=== PATIENT | male | born 1950 | race Caucasian/White ===

== ENCOUNTER 2021-10-31 06:41 | Day surgery (SDC) | payer MEDICARE, OTHER ==
[2021-10-25 11:45] LABS: CLARITY,URINE CLEAR (Clear); COLOR,URINE YELLOW (Yellow); GLUCOSE, URINE NEGATIVE (Neg); KETONES,URINE TRACE mg/dl (Neg); LEUKOCYTE ESTERASE ,URINE NEGATIVE (Neg); NITRITES, URINE NEGATIVE (Neg); OCCULT BLOOD,URINE TRACE-INTACT (Neg); PROTEIN,URINE NEGATIVE (Neg); UA COLLECTION TYPE CLN CATCH MIDSTREAM; UROBILINOGEN,URINE 0.2 E.U/dL (0.2-1.0)
[2021-10-25 11:48] LABS: BASOPHILS # (AUTO) 0.1 X10'3 (0-0.2); BASOPHILS % (AUTO) 0.9 % (0-1); EOSINOPHILS # (AUTO) 0.2 X10'3 (0-0.9); LYMPHOCYTES # (AUTO) 2.9 X10'3 (1.1-4.8); LYMPHOCYTES % (AUTO) 33.3 % (21-51); MEAN CORPUSCULAR HEMOGLOBIN 32.1 PG (27.0-31.0); MEAN CORPUSCULAR HGB CONC 34.1 g/dL (33.0-36.5); MEAN CORPUSCULAR VOLUME 94.3 FL (78-98); MEAN PLATELET VOLUME 7.3 FL (7.4-10.4); MONOCYTES # (AUTO) 0.7 X10'3 (0-0.9); MONOCYTES % (AUTO) 8.4 % (2-12); NEUTROPHILS # (AUTO) 4.9 X10'3 (1.8-7.7); NEUTROPHILS % (AUTO) 55.4 % (42-75); PRE OP HEMOGLOBIN 14.7 g/dL (14.0-17.9); PRE OP PLATELET COUNT 262 X10'3 (140-440); RED BLOOD COUNT 4.56 X10'6 (4.70-6.10); RED CELL DISTRIBUTION WIDTH 13.4 % (11.5-14.5)
[2021-10-25 11:52] LABS: HYALINE CASTS 0-3 /LPF (NEGATIVE); MUCUS STRANDS MANY /LPF (Neg)
[2021-10-25 11:53] LABS: WBC,URINE 0-4 /HPF (0-4)
[2021-10-25 11:54] LABS: BACTERIA,URINE FEW /HPF (Neg); RBC,URINE 0-2 /HPF (0-2)
[2021-10-25 11:56] LABS: SQUAMOUS EPITHELIAL CELL,UR MODERATE /LPF (FEW)
[2021-10-25 12:29] LABS: ALBUMIN 3.7 G/DL (3.4-5.0); ALBUMIN/GLOBULIN RATIO 0.9 (1.1-1.5); ALKALINE PHOSPHATASE 93 IU/L (46-116); BLOOD UREA NITROGEN 17 MG/DL (7-18); BUN/CREATININE RATIO 19.1 (5.4-32.0); CALCIUM 9.1 MG/DL (8.5-10.1); CHLORIDE 102 MMOL/L (99-107); CREATININE 0.89 MG/DL (0.60-1.10); PRE OP ALT 39 U/L (30-65); PRE OP ANION GAP 7 (8-16); PRE OP AST 23 U/L (10-37); PRE OP GLUCOSE 98 MG/DL (70-104); PRE OP SODIUM 138 MMOL/L (135-145); TOTAL CARBON DIOXIDE 28.6 MMOL/L (24-32); TOTAL PROTEIN 7.7 G/DL (6.4-8.2); eGFR 85 ML/MIN
[2021-10-25 12:39] LABS: PRE OP BILIRUB, TOTAL 1.5 MG/DL (0.0-1.0)
[~2021-10-31] VITALS: Ht 172.7 cm; Wt 92.9 kg
[2021-10-31] VITALS (25 sets, daily range): BP systolic 132–160; BP diastolic 68–87
[~2021-10-31 06:41] MED LIST: ALLO100T PO; ASPI-845 PO; ATOR40TA PO; DOCUMENT DATE & TIME OF BETA-BLOCKER PO ONE; EZET10TA6 PO; FERR240T15 PO; FLO0.4C PO; LOP12.5T PO; MAGN400C PO; OMEG-79 PO; cefazolin/dext.iso 2gm/50ml IV ONE; famotidine 20mg tablet PO ONE; ringers solution, lacted 1,000 ML IV SCH
[2021-10-31] MEDS ORDERED: AMLO2.5T5 PO (07:13)
[2021-10-31] MEDS ORDERED: BUPIVAcaine/PF 2.5 mg/ml (0.25%) 30ml vial ONE ×3 (08:29→12:45)
[2021-10-31] MEDS ORDERED: morphine 4 MG/ML inj SYRINge IV PRN (10:15)
[2021-10-31] MEDS ORDERED: ondansetron/PF 4mg/2ml inj IV PRN (10:15)
[2021-10-31] MEDS ORDERED: proCHLORperazine 10 MG/2 ml inj IV PRN (10:15)
[2021-10-31] MEDS ORDERED: meperidine/PF 25mg/ml syringe IV PRN ×3 (10:15)
[2021-10-31] MEDS ORDERED: ringers solution, lacted 1,000 ML IV SCH (10:15)
[2021-10-31] MEDS ORDERED: morphine 2 MG/ML inj. syringe IV PRN (10:15)
[2021-10-31] MEDS ORDERED: fentaNYL/PF 50MCG/1 ML 2ML syringe ONE (10:17)
[2021-10-31] MEDS ORDERED: midazolam 1 mg/ML 2ml injection ONE (10:17)
[2021-10-31] MEDS ORDERED: LIDOcaine 2% (20mg/ml) 5ml vial ONE (10:20)
[2021-10-31] MEDS ORDERED: propofol inj 20 ML IV ONE (10:20)
[2021-10-31] MEDS ORDERED: ondansetron/PF 4mg/2ml inj ONE (10:21)
[2021-10-31] MEDS ORDERED: dexamethasone sod phosphate 4mg/ml inj. ONE (10:21)
[2021-10-31] MEDS ORDERED: rocuronium 10mg/ml inj IV ONE (10:21)
[2021-10-31] MEDS ORDERED: neostigmine methylsulfate 1 MG/ML 10ml vial ONE (11:11)
[2021-10-31] MEDS ORDERED: sevoflurane 250ml liquid IH ONE (11:11)
[2021-10-31] MEDS ORDERED: glycopyrrolate 0.2mg/ml inj ONE (11:11)
[2021-10-31] MEDS ORDERED: bacitracin 15gm ointment TP ONE (11:52)
--- NOTE | 2021-10-31 12:53 | NUR ---
Received from OR via , accompanied by Anesthesiologist DR SAUL and report given by Anesthesiolgist. PT PRESENTS WITH 20G RIGHT HAND, ABD DRESSING DRY AND INTACT, VS. Addendum: 10/31/21 at 1322 by Zara Tam RN, RN Amended: Links added.
--- NOTE | 2021-10-31 16:28 | NUR ---
PT UP TO THE BATHROOM, UNABLE TO URINATE. BLADDER SCAN 117 URINE. PT GIVNE 1000 MLS WATER TO DRINK. PT REFUSING CERON CATHETER AT THIS TIME. Addendum: 10/31/21 at 1629 by Zara Tam RN, RN Amended: Links added.
[2021-10-31] MEDS ORDERED: LIDOcaine 2% 10ml TOPICAL JELLY (Urojet) MM ONE (18:50)
--- NOTE | 2021-10-31 19:00 | NUR ---
CERON CATHER PLACED 16 L[place]ISH WITH 450 MLS OF URINE OUTPUT. PT TO FOLLOW UP WITH DR INGRAM IN 48 HOURS TO HAVE CERON CATHETER REMOVED. PT IS AWARE AND WILL CALL DR INGRAM FOR AN APT IN THE MORNING. Addendum: 10/31/21 at 1937 by Zara Tam RN, RN Amended: Links added.
--- NOTE | 2021-10-31 19:23 | NUR ---
PATIENT DISCHARGED FROM PACU IN STABLE CONDITION AFTER WRITTEN AND VERBAL DISCHARGE INSTRUCTIONS GIVEN. PATIENT GAVE VERBAL UNDERSTANDING OF INSTRUCTIONS. PATIENT LEFT FACILITY VIA WHEELCHAIR WITH RN. PT ADVISED TO HAVE F/C REMOVED BY DR INGRAM IN 48 HOURS. PT TO HAVE F/C REMOVED IN 48 HOURS. Addendum: 10/31/21 at 1942 by Zaar Tam RN, RN Amended: Links added.
== END 2021-10-31 07:30 | disposition home or self-care (01) ==
LOC: PAS 06:41
PROVIDERS: ATTEND Surgery
DX: K42.9 Umbilical hernia without obstruction or gangrene (principal); K40.90 Unilateral inguinal hernia, without obstruction or gangrene, not specified as recurrent; D17.6 Benign lipomatous neoplasm of spermatic cord; J44.9 Chronic obstructive pulmonary disease, unspecified; D50.9 Iron deficiency anemia, unspecified; I25.2 Old myocardial infarction; M10.9 Gout, unspecified; E66.9 Obesity, unspecified; Z68.30 Body mass index [BMI] 30.0-30.9, adult; K21.9 Gastro-esophageal reflux disease without esophagitis; N40.0 Benign prostatic hyperplasia without lower urinary tract symptoms; Z85.828 Personal history of other malignant neoplasm of skin; Z20.822 Contact with and (suspected) exposure to COVID-19; Z79.899 Other long term (current) drug therapy; Z91.09 Other allergy status, other than to drugs and biological substances; Z88.2 Allergy status to sulfonamides; Z88.8 Allergy status to other drugs, medicaments and biological substances; Z87.891 Personal history of nicotine dependence
CPT/HCPCS: 36415; 49585; 49650; 71046; 80053; 81001; 82948; 85025; 93005; C1758; C1781; J0690; J1100; J2175; J2250; J2405; J2704; J2710; J3010; J3490; J7120; U0003; U0005; Z7506; Z7508; Z7512; A4215; A4618